=== PATIENT | female | born 1945 | race Caucasian/White ===

== ENCOUNTER → 2017-02-01 16:47 | Outpatient (CLI) | payer MEDICARE ==
[2014-06-24 14:55] VITALS: BMI 29.8
[~2017-02-01 16:47] MED LIST: CALCIUM PO; LASIX40 MG PO; LEVOTHYROXINE; ROXICODONE30 MG PO; SOMA350 MG PO; VITAMIN D PO; [UNRECOGNIZED DRUG - REMARK] PO; [UNRECOGNIZED DRUG - REMARK] PO; [UNRECOGNIZED DRUG - REMARK] TP
== END | disposition home or self-care (01) ==
LOC: D.MAMMO 13:15
DX: Z12.31 Encounter for screening mammogram for malignant neoplasm of breast (principal)

== ENCOUNTER → 2018-03-14 08:09 | Outpatient (CLI) | payer MEDICARE ==
[2014-06-24 14:55] VITALS: BMI 29.8
[~2018-03-14 08:09] MED LIST changes: +CELEXA20 MG PO; +FUROSEMIDE40 MG PO; +LEVOTHYROXINE50 MCG PO; +OMNICEF300 MG PO; +PHENERGAN25 M1 PO; +REMERON15 MG PO; +ROXICODONE15 MG PO; +VENTOLIN HFA18 GM INH; +ZANAFLEX4 MG PO; +ZOCOR40 MG PO
== END | disposition home or self-care (01) ==
LOC: D.CT 08:09
DX: R93.8 Abnormal findings on diagnostic imaging of other specified body structures (principal)

== ENCOUNTER 2018-03-26 12:54 | Inpatient (IN) | payer MEDICARE ==
[~2018-03-26] VITALS: Ht 165.1 cm; Wt 86.8 kg
--- NOTE | ~2018-03-26 | EC ---
PATIENT:TIFFANI REYES DATE OF SERVICE: 03/26/18 SEX: F MEDICAL RECORD: [id number] DATE OF : 43 LOCATION:[facility] AGE OF PATIENT: 72 ADMISSION DATE: 03/26/18 REFERRING PHYSICIAN: INTERPRETING PHYSICIAN: ANAHI FLORES MD ECHOCARDIOGRAM REPORT ECHO CHARGES Date: CLINICAL DIAGNOSIS: ECHOCARDIOGRAPHIC MEASUREMENTS (adult normal given) AC root (d.<3.7cm) cm LV Septum d (<1.2 cm> cm Valve Excursion cm LV Septum (systole) cm Left Atria (s.<4.0cm> cm LVPW d(<1.2cm) cm RV (d.<2.3cm) cm LVPW (sytole) cm LV diastole(<5.6CM) cm MV E-F(>70mm/sec) cm LV systole cm LVOT Diameter cm MV exc.(>10mm) cm Est.ejection fraction (50-75%) % DOPPLER: LVIT cm/sec A cm/sec E cm/sec LA cm/sec RVSP mmHg LVOT cm/sec AOP1/2T m/s Asc. Ao cm/sec RVOT cm/sec RA cm/sec PA cm/sec AV Gradient Peak mmHg AV Mean mmHg AV Area cm MV Gradient Peak mmHg MV Mean mmHg MV Area cm COMMENTS: Buttonholer: Is Manager: ADELITA# Pericardial Effusion DATE OF SERVICE: PROCEDURE: Transthoracic echocardiogram. FINDINGS: 1. The left ventricle shows mild left ventricular hypertrophy. Inflow characteristics are consistent with diastolic dysfunction. 2. The left atrium is normal size, normal function. 3. The ejection fraction of the left ventricle is 60%. 4. The aortic valve is mildly thickened and sclerotic, but with normal ECHOCARDIOGRAM REPORT [id number] TIFFANI REYES function. 5. The mitral valve is normal, no significant mitral regurgitation, structurally normal. 6. The tricuspid valve has mild tricuspid regurgitation. RVSP is normal. 7. The right ventricle is normal size, shape, structure, and function. 8. The right atrium is normal. CONCLUSIONS: The patient has normal echocardiogram. TRANSINT:[id number] Voice Confirmation ID: [id number] DOCUMENT ID: [id number] ANAHI FLORES MD at 1029 CC: [id number] DICTATION DATE: 03/27/18 1119 BALL WARPER TENDER: 03/27/18 1231 ADM IN [facility] [address] [facility], [facility]
--- NOTE | ~2018-03-26 | CN ---
PATIENT NAME:TIFFANI ROSAS MEDICAL RECORD: [id number] : 43 LOCATION:[facility]2307 ADMIT DATE: 03/26/18 ACCOUNT: [id number] CONSULTING PHYSICIAN: JORGE MARAVILLA MD REFERRING PHYSICIAN: GITA AHUMADA DO DATE OF CONSULTATION: 03/27/2018 CONSULT REQUESTING PHYSICIAN: Gita Ahumada DO REASON FOR CONSULTATION: Right-sided pleural effusion, lung mass, obstructive pneumonia. HISTORY OF PRESENT ILLNESS: Ms. Rosas is a 72-year-old very pleasant lady. She has a history of COPD and having chronic hypoxic respiratory failure. The patient recently had a CT scan on the 14 of March, which showed necrotic mass in the right side as well as large pleural effusion with compressive atelectasis and possible obstructive pneumonia. The patient was seen yesterday in Dr. Deshpande's office, found out her SpO2 was 71% to 77% on room air. It improved to 98% on 4 liters. The patient was admitted to the hospital for thoracentesis as well as workup for the mass and treatment for obstructive pneumonia. Now, today she is feeling better after the thoracentesis. REVIEW OF SYSTEMS: As in history of present illness. PAST MEDICAL HISTORY: 1. COPD. 2. Chronic hypoxic respiratory failure. 3. Coronary artery disease. 4. Hypothyroidism and goiter. 5. History of depression. PAST SURGICAL HISTORY: 1. She has cardiac catheterization and stent placement. 2. Back surgery. ALLERGIES: SHE IS ALLERGIC TO PREGABALIN AND MORPHINE. MEDICATIONS: [employer] is reviewed. PERSONAL AND SOCIAL HISTORY: The patient is a current everyday smoker. She is a nondrinker. FAMILY HISTORY: Significant for cardiovascular diseases. PHYSICAL EXAMINATION: GENERAL: Now, the patient is lying in bed comfortably. She is not in acute distress. VITAL SIGNS: The blood pressure is 132/69, pulse is 76, respiration 18, temperature 97.3, SPO2 is 91% on 4.5 liter nasal cannula. HEENT: Conjunctivae are pink. Sclerae are not icteric. NECK: Supple, no JVD. CHEST: The chest excursion is minimal on the right side. There is dullness on percussion. There are crackles. CONSULT REPORT [id number] TIFFANI ROSAS HEART: Rhythm regular, normal sound, no murmur. ABDOMEN: Soft, bowel sounds present. No hepatosplenomegaly. RECTAL: Deferred. EXTREMITIES: No cyanosis, no clubbing. There is 1+ pedal edema. SKIN: Warm, normal turgor. CENTRAL NERVOUS SYSTEM: The patient is awake and alert. There are no obvious cranial nerve abnormality. The gait was not tested. IMAGING: CT scan of the chest: There is a 4.1 x 7.2 cm necrotic mass in the right perihilar region. There is large pleural effusion. There is associated atelectasis. There is also necrotic appearing mass in the right upper lobe. LABORATORY DATA: CBC: The WBC is 9.3, hemoglobin 9. 5, hematocrit 29.9, platelet count 287. Chemistry: Sodium 137, potassium is 3, BUN is 13, creatinine is 1. ABG: The pH is 7.47, pCO2 is 46.9, the pO2 is 56, and bicarbonate 34.1. This was done on 3 liters oxygen. IMPRESSION: 1. Glgez-by-olcrxar hypoxic respiratory failure. 2. Acute exacerbation of chronic obstructive pulmonary disease. 3. Postobstructive pneumonia. 4. Right pleural effusion, large, most likely secondary to parapneumonic, possible malignant pleural effusion. 5. Cancer of lung. 6. Weight loss. 7. Compressive atelectasis of the right lung. 8. Tobacco dependence syndrome. RECOMMENDATION: 1. Albuterol, ipratropium nebulizer. 2. Brovana, budesonide nebulizer. 3. We will discontinue Rocephin and start her on Zosyn to cover for anaerobes obstructive pneumonia. 4. Follow up on the thoracentesis fluid result. If the pleural fluid is nonconclusive cytology, then we will proceed with a fiberoptic bronchoscopy. Dr. Ahumada, thank you for involving me in the care of Ms. Rosas. TRANSINT:[id number] Voice Confirmation ID: [id number] DOCUMENT ID: [id number] JORGE MARAVILLA MD at 1806 CC: [id number] DICTATION DATE: 03/27/18 1613 PSYCHIATRIC SECRETARY: 03/27/18 1755 ADM IN [place] [id number] [place] [address]
--- NOTE | ~2018-03-26 | OP ---
PATIENT NAME: TIFFANI REYES MEDICAL RECORD: [id number] :43 LOCATION:D[facility] D.2307 ADMISSION DATE:03/26/18 SURGEON: STEVEN CHRISTIAN MD DATE OF OPERATION: 04/04/2018 PREOPERATIVE DIAGNOSES: 1. Need for IV access. 2. Respiratory failure on the ventilator. 3. Bronchogenic carcinoma of the lung. 4. Chronic obstructive pulmonary disease. 5. Coronary artery disease. POSTOPERATIVE DIAGNOSES: 1. Need for IV access. 2. Respiratory failure on the ventilator. 3. Bronchogenic carcinoma of the lung. 4. Chronic obstructive pulmonary disease. 5. Coronary artery disease. PROCEDURE IN DETAIL: Right subclavian vein central venous line placement. SURGEON: Steven Christian MD REPORT OF PROCEDURE: The patient's right chest was prepped and draped in sterile fashion. A needle was used to cannulate the right subclavian vein. A guidewire was advanced with ease. Over this wire, a dilator was placed followed by the triple lumen catheter. The catheter aspirated nonpulsatile dark blood and flushed easily with normal saline. This was sutured into place with 3-0 silk ties and dressed appropriately. COMPLICATIONS: None. CONDITION: Stable. ANESTHESIA: General endotracheal. BLOOD LOSS: Minimal. Procedure done in the ICU at the bedside. TRANSINT:[id number] Voice Confirmation ID: [id number] DOCUMENT ID: [id number] STEVEN CHRISTIAN MD at 1024 CC: [id number] DICTATION DATE: 04/05/18 1307 MANAGER GENERATION: 04/05/18 1335 ADM IN [place] [id number] [place] [address]
--- NOTE | ~2018-03-26 | OP ---
PATIENT NAME: TIFFANI REYES MEDICAL RECORD: [id number] :43 LOCATION:.[facility] D.2307 ADMISSION DATE:03/26/18 SURGEON: RODERICK PARDO MD DATE OF OPERATION: 04/08/2018 SURGEON: Roderick Pardo MD PREOPERATIVE DIAGNOSES: 1. Respiratory failure. 2. Completely obstructing right mainstem bronchial tumor. POSTOPERATIVE DIAGNOSES: 1. Respiratory failure. 2. Completely obstructing right mainstem bronchial tumor. PROCEDURES PERFORMED: 1. Flexible bronchoscopy. 2. Immediate interpretation of fluoroscopy with right mainstem bronchial stent placement. ANESTHESIA: General. COMPLICATIONS: None. SPECIMENS: None. CASE: Contaminated. OPERATIVE COURSE: After consent was obtained, the patient was taken to the operating room. The patient was transferred from the ICU, intubated to the operating room. A timeout was taken to confirm the correct patient and procedure. Glow N Tell tape was placed in the patient's chest wall. The bronchoscope was advanced through the endotracheal tube and the scope was advanced through the endotracheal tube. The filomena was identified. The left main stem bronchus was evaluated and suctioned. The right mainstem bronchus showed a completely occluding lesion, beginning at the takeoff of the right main stem bronchus. A 0.035 Jagwire was placed through the working channel port. Under fluoroscopy, the wire was advanced into the right lower lobe. The scope was removed. Prior to the scope being removed, the tumor site was marked. An 18 x 40 tracheobronchial stent was then passed over the wire under direct fluoroscopy. Once the stent was placed across the lesion and under fluoroscopy was deployed, the stent device was removed as well as the wire. The bronchoscope was passed back through the endotracheal tube and into the right main stem bronchus. The scope was able to be advanced three-quarters of the way through the right bronchial stent and was copiously irrigated and suctioned. There were some air bubbles noted. There was copious and thick secretions distal to the stent. At this time, all the irrigation was suctioned. The bronchoscope was removed. At the end of the case, all needle and instrument counts were correct. No complications occurred. The patient was transferred to the recovery room in stable condition, intubated. TRANSINT:[id number] Voice Confirmation ID: [id number] DOCUMENT ID: [id number] OPERATIVE REPORT [id number] TIFFANI REYES JAMES J MD at 0754 CC: [id number] DICTATION DATE: 04/08/181628 MOTEL MAID: [id number]/08/[id number] ADM IN [place] [id number] [place] [id number]
[~2018-03-26 12:54] MED LIST changes: -CELEXA20 MG PO; -FUROSEMIDE40 MG PO; -LEVOTHYROXINE50 MCG PO; -OMNICEF300 MG PO; -PHENERGAN25 M1 PO; -REMERON15 MG PO; -ROXICODONE15 MG PO; -VENTOLIN HFA18 GM INH; -ZANAFLEX4 MG PO; -ZOCOR40 MG PO
[2018-03-26 15:31] VITALS: BP 109/64
[2018-03-26 15:33] VITALS: BP 108/64; BMI 26.5
[2018-03-26 15:53] LABS: BASOPHILS 0.1 % (0-2); EOSINOPHILS 0.2 % (0-7); HEMATOCRIT 29.9 % (36.0-48.0); HEMOGLOBIN 9.5 g/dL (12-16); IMMATURE GRANULOCYTES 0.2 % (0-5); MCH 29.1 pg (26.0-34.0); MCHC 31.8 g/dL (31.0-37.0); MCV 91.7 fL (80.0-100.0); MEAN PLATELET VOLUME 9.9 fL (7.4-10.4); MONOCYTES 6.3 % (2-11); NEUTROPHILS 84.2 % (40-80); PLATELET COUNT 287 10x3/uL (130-400); RBC 3.26 10x6/uL (4.00-5.40); RDW 13.7 % (11.5-14.5); WBC 9.3 10x3/uL (4.8-10.8)
[2018-03-26 16:05] LABS: APTT 25.1 SECONDS (22.8-39.4); INR 1.05 (0.85-1.17); PROTIME 13.3 SECONDS (11.6-15.0)
[2018-03-26 16:17] LABS: ALBUMIN 2.3 g/dL (3.4-5.0); ANION GAP 11.3 mmol/L (8-16); BILIRUBIN - TOTAL 0.33 mg/dL (0.2-1.3); CALCIUM 8.5 mg/dL (8.5-10.1); CARBON DIOXIDE 34.3 mmol/L (21.0-32.0); CREATININE - SERUM 0.9 mg/dL (0.6-1.3); PHOSPHOROUS 3.1 mg/dL (2.5-4.9); POTASSIUM - SERUM 3.6 mmol/L (3.5-5.1); PROTEIN - SERUM 6.6 g/dL (6.4-8.2)
[2018-03-26 16:20] LABS: D-DIMER-QUANTITATIVE 2.94 ug/mLFEU (0.20-0.54)
[2018-03-26 17:56] LABS: CKMB 0.4 U/L (0.0-3.6); CREATINE KINASE 52 UL (21-215); PRO BNP 881 pg/mL (0-125); TROPONIN-I < 0.017 ng/mL (0.000-0.060)
[2018-03-26 20:31] VITALS: BP 122/74
[2018-03-26 22:51] LABS: CKMB 1.4 U/L (0.0-3.6); TROPONIN-I < 0.017 ng/mL (0.000-0.060)
[2018-03-26 23:08] LABS: CREATINE KINASE 263 UL (21-215)
[2018-03-27] VITALS (7 sets, daily range): BP systolic 98–140; BP diastolic 48–69; BMI 26.2
[2018-03-27] MEDS ORDERED: CELEXA20 MG PO (04:05)
[2018-03-27] MEDS ORDERED: REMERON15 MG PO (04:06)
[2018-03-27] MEDS ORDERED: ROXICODONE15 MG PO (04:06)
[2018-03-27] MEDS ORDERED: FUROSEMIDE40 MG PO (04:06)
[2018-03-27] MEDS ORDERED: ZANAFLEX4 MG PO (04:07)
[2018-03-27] MEDS ORDERED: LEVOTHYROXINE50 MCG PO (04:08)
[2018-03-27] MEDS ORDERED: ZOCOR40 MG PO (04:08)
[2018-03-27] MEDS ORDERED: VENTOLIN HFA18 GM INH (04:08)
[2018-03-27 05:36] LABS: BASOPHILS 0 % (0-2); EOSINOPHILS 0 % (0-7); HEMATOCRIT 30.8 % (36.0-48.0); HEMOGLOBIN 9.8 g/dL (12-16); LYMPHOCYTES 5.4 % (15-50); MCH 29.2 pg (26.0-34.0); MCHC 31.8 g/dL (31.0-37.0); MCV 91.7 fL (80.0-100.0); MONOCYTES 0.6 % (2-11); PLATELET COUNT 341 10x3/uL (130-400); RBC 3.36 10x6/uL (4.00-5.40); RDW 13.7 % (11.5-14.5)
[2018-03-27 05:55] LABS: WBC 6.3 10x3/uL (4.8-10.8)
[2018-03-27 06:10] LABS: ALBUMIN 2.3 g/dL (3.4-5.0); ALKALINE PHOSPHATASE 77 U/L (46-116); ALT (SGPT) 4 U/L (10-68); CALC OSMOLALITY 275 mosm/kg (275-300); CARBON DIOXIDE 31.1 mmol/L (21.0-32.0); CHLORIDE - SERUM 98 mmol/L (98-107); CKMB 0.6 U/L (0.0-3.6); CREATINE KINASE 44 UL (21-215); GLUCOSE 132 mg/dL (74-106); PROTEIN - SERUM 7.4 g/dL (6.4-8.2); SODIUM 137 mmol/L (136-145); TROPONIN-I < 0.017 ng/mL (0.000-0.060); UREA NITROGEN 13 mg/dL (7-18); eGFR NON AFRICAN AMERICAN 58 mL/min (90-120)
[2018-03-27 07:20] LABS: INR 1.01 (0.85-1.17); PROTIME 12.9 SECONDS (11.6-15.0)
[2018-03-27 07:24] LABS: APTT 34.1 SECONDS (22.8-39.4)
[2018-03-27] MEDS ORDERED: OMNICEF300 MG PO (08:47)
[2018-03-27] MEDS ORDERED: PHENERGAN25 M1 PO (08:50)
[2018-03-27 15:52] LABS: PROTEIN - BODY FLUID 4.1 G/DL
[2018-03-27 17:01] LABS: MACROPHAGES BF 9 %; MESOTHELIALS BF 21 %; NEUT - BF 25 %
[2018-03-28 00:51] VITALS: BP 105/61
[2018-03-28 04:53] VITALS: BP 110/51
[2018-03-28 06:08] LABS: BASOPHILS 0 % (0-2); EOSINOPHILS 0 % (0-7); HEMATOCRIT 28.9 % (36.0-48.0); IMMATURE GRANULOCYTES 0.2 % (0-5); LYMPHOCYTES 2.3 % (15-50); MCH 28.6 pg (26.0-34.0); MCHC 31.1 g/dL (31.0-37.0); MCV 91.7 fL (80.0-100.0); MEAN PLATELET VOLUME 9.7 fL (7.4-10.4); MONOCYTES 2.1 % (2-11); NEUTROPHILS 95.4 % (40-80); PLATELET COUNT 353 10x3/uL (130-400); RBC 3.15 10x6/uL (4.00-5.40); RDW 13.8 % (11.5-14.5)
[2018-03-28 06:11] LABS: WBC 10.8 10x3/uL (4.8-10.8)
[2018-03-28 06:42] LABS: ALBUMIN 2.2 g/dL (3.4-5.0); BILIRUBIN - TOTAL 0.33 mg/dL (0.2-1.3); CALCIUM 9.1 mg/dL (8.5-10.1); CREATININE - SERUM 1.2 mg/dL (0.6-1.3)
[2018-03-28 08:50] VITALS: BP 88/45
[2018-03-28 12:03] VITALS: BP 93/47
[2018-03-28 16:56] VITALS: BP 104/55
[2018-03-28 20:17] VITALS: BP 126/70
[2018-03-28 21:08] LABS: AFB SPECIMEN PROCESSING Not Indicated (())
[2018-03-29 00:57] VITALS: BP 135/58
[2018-03-29 04:28] VITALS: BP 140/68
[2018-03-29 05:02] LABS: BASOPHILS 0.1 % (0-2); EOSINOPHILS 0 % (0-7); HEMATOCRIT 33.8 % (36.0-48.0); HEMOGLOBIN 10.7 g/dL (12-16); IMMATURE GRANULOCYTES 0.3 % (0-5); LYMPHOCYTES 1.9 % (15-50); MCH 29.5 pg (26.0-34.0); MCHC 31.7 g/dL (31.0-37.0); MCV 93.1 fL (80.0-100.0); MEAN PLATELET VOLUME 10.6 fL (7.4-10.4); MONOCYTES 1.3 % (2-11); NEUTROPHILS 96.4 % (40-80); PLATELET COUNT 355 10x3/uL (130-400); RBC 3.63 10x6/uL (4.00-5.40)
[2018-03-29 05:03] LABS: WBC 13.8 10x3/uL (4.8-10.8)
[2018-03-29 05:34] LABS: ALBUMIN 2.4 g/dL (3.4-5.0); ANION GAP 13.2 mmol/L (8-16); BILIRUBIN - TOTAL 0.39 mg/dL (0.2-1.3); CALCIUM 9.8 mg/dL (8.5-10.1); CARBON DIOXIDE 31.9 mmol/L (21.0-32.0); CREATININE - SERUM 1.2 mg/dL (0.6-1.3); POTASSIUM - SERUM 4.1 mmol/L (3.5-5.1); PROTEIN - SERUM 7.4 g/dL (6.4-8.2)
[2018-03-29 09:01] VITALS: BP 137/72
[2018-03-29 13:17] LABS: FUNGUS STAIN Final report (())
[2018-03-29 13:30] VITALS: BP 138/74
[2018-03-29 20:33] VITALS: BP 126/64
[2018-03-30 01:35] VITALS: BP 149/70
[2018-03-30 04:58] LABS: BASOPHILS 0 % (0-2); EOSINOPHILS 0 % (0-7); HEMATOCRIT 33.4 % (36.0-48.0); HEMOGLOBIN 10.3 g/dL (12-16); IMMATURE GRANULOCYTES 0.2 % (0-5); LYMPHOCYTES 2.1 % (15-50); MCH 28.9 pg (26.0-34.0); MCHC 30.8 g/dL (31.0-37.0); MCV 93.8 fL (80.0-100.0); MEAN PLATELET VOLUME 9.6 fL (7.4-10.4); MONOCYTES 2.7 % (2-11); PLATELET COUNT 365 10x3/uL (130-400); RBC 3.56 10x6/uL (4.00-5.40); WBC 13.2 10x3/uL (4.8-10.8)
[2018-03-30 05:50] VITALS: BP 179/90
[2018-03-30 06:13] LABS: ALBUMIN 2.5 g/dL (3.4-5.0); ANION GAP 14.5 mmol/L (8-16); BILIRUBIN - TOTAL 0.37 mg/dL (0.2-1.3); CALCIUM 10.5 mg/dL (8.5-10.1); CARBON DIOXIDE 29.6 mmol/L (21.0-32.0); CREATININE - SERUM 1.1 mg/dL (0.6-1.3); POTASSIUM - SERUM 4.1 mmol/L (3.5-5.1); PROTEIN - SERUM 7.6 g/dL (6.4-8.2)
[2018-03-30 08:38] VITALS: BP 117/62
[2018-03-30 11:21] VITALS: BP 136/75
[2018-03-30 16:34] VITALS: BP 152/92
[2018-03-30 20:02] VITALS: BP 159/79
[2018-03-31] VITALS: BP 148/86
[2018-03-31 04:00] VITALS: BP 168/97
[2018-03-31 06:13] LABS: BASOPHILS 0 % (0-2); EOSINOPHILS 0 % (0-7); HEMATOCRIT 36.2 % (36.0-48.0); HEMOGLOBIN 11.2 g/dL (12-16); IMMATURE GRANULOCYTES 0.3 % (0-5); LYMPHOCYTES 3.1 % (15-50); MCH 28.9 pg (26.0-34.0); MCHC 30.9 g/dL (31.0-37.0); MCV 93.3 fL (80.0-100.0); MEAN PLATELET VOLUME 10.1 fL (7.4-10.4); MONOCYTES 5.7 % (2-11); NEUTROPHILS 90.9 % (40-80); PLATELET COUNT 360 10x3/uL (130-400); RBC 3.88 10x6/uL (4.00-5.40); RDW 14.2 % (11.5-14.5); WBC 14.3 10x3/uL (4.8-10.8)
[2018-03-31 06:52] LABS: ALBUMIN 2.5 g/dL (3.4-5.0); ANION GAP 18.5 mmol/L (8-16); BILIRUBIN - TOTAL 0.44 mg/dL (0.2-1.3); CALCIUM 10.5 mg/dL (8.5-10.1); CARBON DIOXIDE 28.8 mmol/L (21.0-32.0); POTASSIUM - SERUM 4.3 mmol/L (3.5-5.1); PROTEIN - SERUM 6.9 g/dL (6.4-8.2)
[2018-03-31 08:15] VITALS: BP 162/91
[2018-03-31 11:21] VITALS: BP 155/88
[2018-03-31 15:19] VITALS: BP 142/79
[2018-03-31 17:56] LABS: BASOPHILS 0 % (0-2); EOSINOPHILS 0.1 % (0-7); HEMATOCRIT 37.6 % (36.0-48.0); HEMOGLOBIN 11.6 g/dL (12-16); IMMATURE GRANULOCYTES 0.4 % (0-5); LYMPHOCYTES 1.8 % (15-50); MCH 29.1 pg (26.0-34.0); MCHC 30.9 g/dL (31.0-37.0); MCV 94.5 fL (80.0-100.0); MEAN PLATELET VOLUME 9.9 fL (7.4-10.4); MONOCYTES 1.8 % (2-11); NEUTROPHILS 95.9 % (40-80); PLATELET COUNT 343 10x3/uL (130-400); RBC 3.98 10x6/uL (4.00-5.40); RDW 14.4 % (11.5-14.5); WBC 15.9 10x3/uL (4.8-10.8)
[2018-03-31 18:05] LABS: APTT 23.6 SECONDS (22.8-39.4); INR 1.06 (0.85-1.17); PROTIME 13.4 SECONDS (11.6-15.0)
[2018-03-31 20:00] VITALS: BP 137/85
[2018-04-01] VITALS (16 sets, daily range): BP systolic 111–150; BP diastolic 71–104
[2018-04-02] VITALS (23 sets, daily range): BP systolic 112–165; BP diastolic 69–102
[2018-04-02 04:07] LABS: BASOPHILS 0.2 % (0-2); EOSINOPHILS 0 % (0-7); HEMATOCRIT 35.6 % (36.0-48.0); HEMOGLOBIN 11.1 g/dL (12-16); IMMATURE GRANULOCYTES 0.4 % (0-5); LYMPHOCYTES 2.9 % (15-50); MCH 28.9 pg (26.0-34.0); MCHC 31.2 g/dL (31.0-37.0); MCV 92.7 fL (80.0-100.0); MEAN PLATELET VOLUME 10.3 fL (7.4-10.4); MONOCYTES 0.7 % (2-11); NEUTROPHILS 95.8 % (40-80); PLATELET COUNT 347 10x3/uL (130-400); RBC 3.84 10x6/uL (4.00-5.40); RDW 14.3 % (11.5-14.5); WBC 12.3 10x3/uL (4.8-10.8)
[2018-04-02 04:32] LABS: ANION GAP 14.3 mmol/L (8-16); CARBON DIOXIDE 28.2 mmol/L (21.0-32.0); MAGNESIUM - SERUM 2.2 mg/dL (1.8-2.4); PHOSPHOROUS 3.7 mg/dL (2.5-4.9); POTASSIUM - SERUM 4.5 mmol/L (3.5-5.1)
[2018-04-03] VITALS (24 sets, daily range): BP systolic 61–141; BP diastolic 36–95
[2018-04-03 04:56] LABS: BASOPHILS 0 % (0-2); EOSINOPHILS 0 % (0-7); HEMATOCRIT 36.5 % (36.0-48.0); HEMOGLOBIN 11.3 g/dL (12-16); IMMATURE GRANULOCYTES 0.2 % (0-5); LYMPHOCYTES 3.4 % (15-50); MCH 28.8 pg (26.0-34.0); MCV 93.1 fL (80.0-100.0); MEAN PLATELET VOLUME 10.1 fL (7.4-10.4); MONOCYTES 1.5 % (2-11); NEUTROPHILS 94.9 % (40-80); PLATELET COUNT 338 10x3/uL (130-400); RBC 3.92 10x6/uL (4.00-5.40); RDW 14.3 % (11.5-14.5)
[2018-04-03 05:11] LABS: WBC 16.2 10x3/uL (4.8-10.8)
[2018-04-03 05:16] LABS: ALBUMIN 2.1 g/dL (3.4-5.0); BILIRUBIN - TOTAL 0.4 mg/dL (0.2-1.3); CALCIUM 10.1 mg/dL (8.5-10.1); CARBON DIOXIDE 26.8 mmol/L (21.0-32.0); CREATININE - SERUM 1.2 mg/dL (0.6-1.3); MAGNESIUM - SERUM 2.2 mg/dL (1.8-2.4); PHOSPHOROUS 2.9 mg/dL (2.5-4.9); PROTEIN - SERUM 6.6 g/dL (6.4-8.2)
[2018-04-03 05:21] LABS: POTASSIUM - SERUM 3.8 mmol/L (3.5-5.1)
[2018-04-04] VITALS (24 sets, daily range): BP systolic 89–134; BP diastolic 72–93; Ht 165.1 cm; Wt 86.8 kg
[2018-04-04 04:21] LABS: BASOPHILS 0 % (0-2); EOSINOPHILS 0 % (0-7); HEMATOCRIT 36.3 % (36.0-48.0); HEMOGLOBIN 11.2 g/dL (12-16); IMMATURE GRANULOCYTES 0.2 % (0-5); LYMPHOCYTES 4.5 % (15-50); MCH 28.6 pg (26.0-34.0); MCHC 30.9 g/dL (31.0-37.0); MCV 92.6 fL (80.0-100.0); MEAN PLATELET VOLUME 10.1 fL (7.4-10.4); MONOCYTES 2.4 % (2-11); NEUTROPHILS 92.9 % (40-80); PLATELET COUNT 309 10x3/uL (130-400); RBC 3.92 10x6/uL (4.00-5.40); RDW 14.4 % (11.5-14.5); WBC 15.8 10x3/uL (4.8-10.8)
[2018-04-04 04:42] LABS: INR 1.06 (0.85-1.17); PROTIME 13.4 SECONDS (11.6-15.0)
[2018-04-04 04:46] LABS: ANION GAP 13.1 mmol/L (8-16); BILIRUBIN - TOTAL 0.31 mg/dL (0.2-1.3); CALCIUM 10.6 mg/dL (8.5-10.1); CARBON DIOXIDE 26.9 mmol/L (21.0-32.0); CREATININE - SERUM 0.9 mg/dL (0.6-1.3); PROTEIN - SERUM 6.4 g/dL (6.4-8.2)
[2018-04-05] VITALS (24 sets, daily range): BP systolic 86–134; BP diastolic 60–94
[2018-04-05 04:21] LABS: BASOPHILS 0 % (0-2); EOSINOPHILS 0 % (0-7); HEMATOCRIT 34.2 % (36.0-48.0); HEMOGLOBIN 10.7 g/dL (12-16); IMMATURE GRANULOCYTES 0.3 % (0-5); LYMPHOCYTES 4.1 % (15-50); MCH 28.7 pg (26.0-34.0); MCHC 31.3 g/dL (31.0-37.0); MCV 91.7 fL (80.0-100.0); MEAN PLATELET VOLUME 10.3 fL (7.4-10.4); MONOCYTES 0.9 % (2-11); NEUTROPHILS 94.7 % (40-80); RBC 3.73 10x6/uL (4.00-5.40); RDW 14.3 % (11.5-14.5); WBC 12.4 10x3/uL (4.8-10.8)
[2018-04-05 04:23] LABS: PLATELET COUNT 240 10x3/uL (130-400)
[2018-04-05 04:41] LABS: ALBUMIN 1.9 g/dL (3.4-5.0); ANION GAP 10.2 mmol/L (8-16); BILIRUBIN - TOTAL 0.29 mg/dL (0.2-1.3); CALCIUM 10.3 mg/dL (8.5-10.1); CARBON DIOXIDE 29.3 mmol/L (21.0-32.0); CREATININE - SERUM 0.9 mg/dL (0.6-1.3); MAGNESIUM - SERUM 2.1 mg/dL (1.8-2.4); PHOSPHOROUS 2.4 mg/dL (2.5-4.9); POTASSIUM - SERUM 3.5 mmol/L (3.5-5.1); PROTEIN - SERUM 6.3 g/dL (6.4-8.2)
[2018-04-05 11:19] LABS: FUNGUS STAIN Final report (())
[2018-04-05 16:15] LABS: AFB SPECIMEN PROCESSING Concentration (())
[2018-04-06] VITALS (24 sets, daily range): BP systolic 84–116; BP diastolic 34–94
[2018-04-06 04:52] LABS: BASOPHILS 0 % (0-2); EOSINOPHILS 0 % (0-7); HEMATOCRIT 34.9 % (36.0-48.0); HEMOGLOBIN 10.9 g/dL (12-16); IMMATURE GRANULOCYTES 0.3 % (0-5); LYMPHOCYTES 3.7 % (15-50); MCH 28.5 pg (26.0-34.0); MCHC 31.2 g/dL (31.0-37.0); MCV 91.4 fL (80.0-100.0); MEAN PLATELET VOLUME 10.8 fL (7.4-10.4); MONOCYTES 1.1 % (2-11); NEUTROPHILS 94.9 % (40-80); PLATELET COUNT 261 10x3/uL (130-400); RBC 3.82 10x6/uL (4.00-5.40); RDW 14.7 % (11.5-14.5)
[2018-04-06 04:54] LABS: WBC 17.2 10x3/uL (4.8-10.8)
[2018-04-06 05:02] LABS: ALBUMIN 1.9 g/dL (3.4-5.0); ANION GAP 10.9 mmol/L (8-16); BILIRUBIN - TOTAL 0.4 mg/dL (0.2-1.3); CALCIUM 10.3 mg/dL (8.5-10.1); CARBON DIOXIDE 27.8 mmol/L (21.0-32.0); PHOSPHOROUS 2.7 mg/dL (2.5-4.9); POTASSIUM - SERUM 3.7 mmol/L (3.5-5.1); PROTEIN - SERUM 6.2 g/dL (6.4-8.2); VANCOMYCIN - TROUGH 15.9 ug/mL (10.0-20.0)
[2018-04-07] VITALS (24 sets, daily range): BP systolic 80–114; BP diastolic 60–81
[2018-04-07 06:16] LABS: HEMATOCRIT 32.7 % (36.0-48.0); HEMOGLOBIN 10.3 g/dL (12-16); MCH 28.6 pg (26.0-34.0); MCHC 31.5 g/dL (31.0-37.0); MCV 90.8 fL (80.0-100.0); MEAN PLATELET VOLUME 10.9 fL (7.4-10.4); PLATELET COUNT 272 10x3/uL (130-400); RDW 14.8 % (11.5-14.5); WBC 22.9 10x3/uL (4.8-10.8)
[2018-04-07 06:47] LABS: ALBUMIN 1.7 g/dL (3.4-5.0); ANION GAP 14.7 mmol/L (8-16); BILIRUBIN - TOTAL 0.51 mg/dL (0.2-1.3); CALCIUM 10.1 mg/dL (8.5-10.1); CARBON DIOXIDE 25.3 mmol/L (21.0-32.0); CREATININE - SERUM 1.2 mg/dL (0.6-1.3); PHOSPHOROUS 2.7 mg/dL (2.5-4.9); TROPONIN-I 0.088 ng/mL (0.000-0.060)
[2018-04-07 06:49] LABS: LYMPHOCYTES 3 % (15-50); MONOCYTES 2 % (2-11); NEUTROPHILS 94 % (40-80); PLATELET ESTIMATE NORMAL; PLATELET MORPHOLOGY GIANT PLTS PRESENT
[2018-04-08] VITALS (24 sets, daily range): BP systolic 94–124; BP diastolic 58–94
[2018-04-08 04:56] LABS: BASOPHILS 0 % (0-2); EOSINOPHILS 0 % (0-7); HEMATOCRIT 30.9 % (36.0-48.0); HEMOGLOBIN 9.8 g/dL (12-16); IMMATURE GRANULOCYTES 0.5 % (0-5); LYMPHOCYTES 2.2 % (15-50); MCH 28.6 pg (26.0-34.0); MCHC 31.7 g/dL (31.0-37.0); MCV 90.1 fL (80.0-100.0); MEAN PLATELET VOLUME 10.8 fL (7.4-10.4); MONOCYTES 1.2 % (2-11); NEUTROPHILS 96.1 % (40-80); PLATELET COUNT 219 10x3/uL (130-400); RBC 3.43 10x6/uL (4.00-5.40); RDW 15.1 % (11.5-14.5); WBC 23.9 10x3/uL (4.8-10.8)
[2018-04-08 05:16] LABS: ALBUMIN 1.7 g/dL (3.4-5.0); ANION GAP 15.9 mmol/L (8-16); BILIRUBIN - TOTAL 0.3 mg/dL (0.2-1.3); CALCIUM 9.8 mg/dL (8.5-10.1); CREATININE - SERUM 1.4 mg/dL (0.6-1.3); MAGNESIUM - SERUM 2.3 mg/dL (1.8-2.4); POTASSIUM - SERUM 3.9 mmol/L (3.5-5.1); PROTEIN - SERUM 5.9 g/dL (6.4-8.2)
[2018-04-08 05:30] LABS: PHOSPHOROUS 3.4 mg/dL (2.5-4.9)
[2018-04-08 07:01] LABS: APTT 24.3 SECONDS (22.8-39.4); INR 1.12 (0.85-1.17)
[2018-04-09] VITALS (25 sets, daily range): BP systolic 106–155; BP diastolic 73–95
[2018-04-09 05:46] LABS: BASOPHILS 0 % (0-2); EOSINOPHILS 0 % (0-7); HEMATOCRIT 31.3 % (36.0-48.0); HEMOGLOBIN 9.7 g/dL (12-16); IMMATURE GRANULOCYTES 0.5 % (0-5); LYMPHOCYTES 1.9 % (15-50); MCH 28.4 pg (26.0-34.0); MCV 91.5 fL (80.0-100.0); MONOCYTES 0.9 % (2-11); NEUTROPHILS 96.7 % (40-80); PLATELET COUNT 254 10x3/uL (130-400); RBC 3.42 10x6/uL (4.00-5.40); RDW 14.9 % (11.5-14.5); WBC 25.4 10x3/uL (4.8-10.8)
[2018-04-09 06:25] LABS: ANION GAP 19.4 mmol/L (8-16); CALCIUM 10.4 mg/dL (8.5-10.1); CARBON DIOXIDE 20.8 mmol/L (21.0-32.0); CREATININE - SERUM 1.5 mg/dL (0.6-1.3); MAGNESIUM - SERUM 2.5 mg/dL (1.8-2.4); POTASSIUM - SERUM 4.2 mmol/L (3.5-5.1)
[2018-04-10] VITALS (25 sets, daily range): BP systolic 100–128; BP diastolic 63–84
[2018-04-10 05:31] LABS: BASOPHILS 0 % (0-2); EOSINOPHILS 0 % (0-7); HEMATOCRIT 29.4 % (36.0-48.0); HEMOGLOBIN 9.2 g/dL (12-16); IMMATURE GRANULOCYTES 0.6 % (0-5); MCH 28.9 pg (26.0-34.0); MCHC 31.3 g/dL (31.0-37.0); MCV 92.5 fL (80.0-100.0); MEAN PLATELET VOLUME 10.6 fL (7.4-10.4); MONOCYTES 0.8 % (2-11); NEUTROPHILS 96.6 % (40-80); PLATELET COUNT 274 10x3/uL (130-400); RBC 3.18 10x6/uL (4.00-5.40); RDW 15.2 % (11.5-14.5); WBC 26.9 10x3/uL (4.8-10.8)
[2018-04-10 05:41] LABS: ANION GAP 16.7 mmol/L (8-16); CALCIUM 10.6 mg/dL (8.5-10.1); CARBON DIOXIDE 22.9 mmol/L (21.0-32.0); CREATININE - SERUM 1.5 mg/dL (0.6-1.3); MAGNESIUM - SERUM 2.8 mg/dL (1.8-2.4); POTASSIUM - SERUM 4.6 mmol/L (3.5-5.1)
[2018-04-11] VITALS (24 sets, daily range): BP systolic 78–122; BP diastolic 50–80
[2018-04-11 04:09] LABS: ANION GAP 14.7 mmol/L (8-16); CALCIUM 10.3 mg/dL (8.5-10.1); CARBON DIOXIDE 22.6 mmol/L (21.0-32.0); CREATININE - SERUM 1.5 mg/dL (0.6-1.3); MAGNESIUM - SERUM 2.7 mg/dL (1.8-2.4); POTASSIUM - SERUM 4.3 mmol/L (3.5-5.1)
[2018-04-11 04:12] LABS: BASOPHILS 0 % (0-2); EOSINOPHILS 0 % (0-7); HEMATOCRIT 28.6 % (36.0-48.0); HEMOGLOBIN 8.8 g/dL (12-16); IMMATURE GRANULOCYTES 0.5 % (0-5); LYMPHOCYTES 2.2 % (15-50); MCH 28.5 pg (26.0-34.0); MCHC 30.8 g/dL (31.0-37.0); MCV 92.6 fL (80.0-100.0); MEAN PLATELET VOLUME 10.1 fL (7.4-10.4); MONOCYTES 0.6 % (2-11); NEUTROPHILS 96.7 % (40-80); PLATELET COUNT 252 10x3/uL (130-400); RBC 3.09 10x6/uL (4.00-5.40); RDW 15.4 % (11.5-14.5); WBC 23.3 10x3/uL (4.8-10.8)
[2018-04-12] VITALS (11 sets, daily range): BP systolic 67–87; BP diastolic 36–56
[2018-04-15 18:08] LABS: FUNGUS CULTURE RESULT 1 Candida albicans (())
[2018-04-24 06:15] LABS: FUNGUS MYCOLOGY CULTURE Final report (())
[2018-05-04 10:11] LABS: FUNGUS MYCOLOGY CULTURE Final report (())
[2018-05-17 13:20] LABS: ACID FAST CULTURE Negative (()); ACID FAST SMEAR Negative (())
[2018-05-27 10:12] LABS: ACID FAST CULTURE Negative (()); ACID FAST SMEAR Negative (())
== END 2018-04-12 10:26 | disposition hospice, inpatient (51) | DRG 207 ==
LOC: D.RAD 12:54 → D.ICU 12:58 → D.SDCHOLD 12:58 → D.M2 12:58 → D.ICU 04-01 12:25
PROVIDERS: Family Medicine; Internal Medicine Pulmonary Disease; Radiology Diagnostic Radiology
PROC: 05HB33Z Insertion of Infusion Device into Right Basilic Vein, Percutaneous Approach (ICD-10-PCS; 2018-03-27)
PROC: B54MZZA Ultrasonography of Right Upper Extremity Veins, Guidance (ICD-10-PCS; 2018-03-27)
PROC: 0W993ZZ Drainage of Right Pleural Cavity, Percutaneous Approach (ICD-10-PCS; principal; 2018-03-27 10:58)
PROC: 0BJ08ZZ Inspection of Tracheobronchial Tree, Via Natural or Artificial Opening Endoscopic (ICD-10-PCS; 2018-04-01)
PROC: 5A09457 Assistance with Respiratory Ventilation, 24-96 Consecutive Hours, Continuous Positive Airway Pressure (ICD-10-PCS; 2018-04-01)
PROC: 05HC33Z Insertion of Infusion Device into Left Basilic Vein, Percutaneous Approach (ICD-10-PCS; 2018-04-04)
PROC: B54NZZA Ultrasonography of Left Upper Extremity Veins, Guidance (ICD-10-PCS; 2018-04-04)
PROC: 5A1955Z Respiratory Ventilation, Greater than 96 Consecutive Hours (ICD-10-PCS; 2018-04-04)
PROC: 02HV33Z Insertion of Infusion Device into Superior Vena Cava, Percutaneous Approach (ICD-10-PCS; 2018-04-04)
PROC: 0BB38ZX Excision of Right Main Bronchus, Via Natural or Artificial Opening Endoscopic, Diagnostic (ICD-10-PCS; 2018-04-04)
PROC: 0B928ZZ Drainage of Carina, Via Natural or Artificial Opening Endoscopic (ICD-10-PCS; 2018-04-04)
PROC: 0B948ZZ Drainage of Right Upper Lobe Bronchus, Via Natural or Artificial Opening Endoscopic (ICD-10-PCS; 2018-04-04)
PROC: 0B988ZZ Drainage of Left Upper Lobe Bronchus, Via Natural or Artificial Opening Endoscopic (ICD-10-PCS; 2018-04-04)
PROC: 0B918ZZ Drainage of Trachea, Via Natural or Artificial Opening Endoscopic (ICD-10-PCS; 2018-04-04)
PROC: 0B958ZZ Drainage of Right Middle Lobe Bronchus, Via Natural or Artificial Opening Endoscopic (ICD-10-PCS; 2018-04-04)
PROC: 0B938ZZ Drainage of Right Main Bronchus, Via Natural or Artificial Opening Endoscopic (ICD-10-PCS; 2018-04-04)
PROC: 0B978ZZ Drainage of Left Main Bronchus, Via Natural or Artificial Opening Endoscopic (ICD-10-PCS; 2018-04-04)
PROC: 0B968ZZ Drainage of Right Lower Lobe Bronchus, Via Natural or Artificial Opening Endoscopic (ICD-10-PCS; 2018-04-04)
PROC: 0B9B8ZZ Drainage of Left Lower Lobe Bronchus, Via Natural or Artificial Opening Endoscopic (ICD-10-PCS; 2018-04-04)
PROC: 0B998ZZ Drainage of Lingula Bronchus, Via Natural or Artificial Opening Endoscopic (ICD-10-PCS; 2018-04-04)
PROC: 0B738DZ Dilation of Right Main Bronchus with Intraluminal Device, Via Natural or Artificial Opening Endoscopic (ICD-10-PCS; 2018-04-08)
DX: C34.01 Malignant neoplasm of right main bronchus (principal); J18.9 Pneumonia, unspecified organism; J96.21 Acute and chronic respiratory failure with hypoxia; J44.1 Chronic obstructive pulmonary disease with (acute) exacerbation; J44.0 Chronic obstructive pulmonary disease with (acute) lower respiratory infection; J98.11 Atelectasis; F17.203 Nicotine dependence unspecified, with withdrawal; J90 Pleural effusion, not elsewhere classified; C78.7 Secondary malignant neoplasm of liver and intrahepatic bile duct; I25.10 Atherosclerotic heart disease of native coronary artery without angina pectoris; E03.9 Hypothyroidism, unspecified; F32.9 Major depressive disorder, single episode, unspecified; E88.09 Other disorders of plasma-protein metabolism, not elsewhere classified; M79.89 Other specified soft tissue disorders; G89.29 Other chronic pain; M54.9 Dorsalgia, unspecified; E83.52 Hypercalcemia; E78.00 Pure hypercholesterolemia, unspecified; M81.0 Age-related osteoporosis without current pathological fracture; F41.9 Anxiety disorder, unspecified; D64.9 Anemia, unspecified; E83.39 Other disorders of phosphorus metabolism

== ENCOUNTER 2018-04-12 10:01 | Inpatient (IN) | payer OTHER ==
[2018-04-04 13:17] VITALS: BMI 26.2
[~2018-04-12 10:01] MED LIST changes: +CELEXA20 MG PO; +FUROSEMIDE40 MG PO; +LEVOTHYROXINE50 MCG PO; +OMNICEF300 MG PO; +PHENERGAN25 M1 PO; +REMERON15 MG PO; +ROXICODONE15 MG PO; +VENTOLIN HFA18 GM INH; +ZANAFLEX4 MG PO; +ZOCOR40 MG PO
== END 2018-04-12 11:16 | DRG 951 ==
LOC: D.ICU 10:01
DX: Z51.5 Encounter for palliative care (principal)